=== PATIENT | female | born 1970 | race African-American/Black ===

== ENCOUNTER 2017-05-07 10:58 | Emergency (ER) | payer BC ==
[2017-05-07 11:06] VITALS: BP 119/75; PULSE 84; RESP 18; TEMP 97.7; O2SAT 96
[2017-05-07] MEDS ORDERED: BUSP5TAB PO (11:28)
[2017-05-07] MEDS ORDERED: ALPR1TAB3 PO (11:28)
[2017-05-07] MEDS ORDERED: DIVA250T3 PO (11:28)
[2017-05-07] MEDS ORDERED: CABE0.5T PO (11:28)
[2017-05-07] MEDS ORDERED: PARO10TA2 PO (11:28)
[2017-05-07] MEDS ORDERED: BIOT1CAP3 PO (11:28)
[2017-05-07] MEDS ORDERED: AMLO5TAB2 PO (11:28)
[2017-05-07 11:30] LABS: AUTOMATED NEUTROPHIL # 1.8 TH/MM3 (1.8-7.7); BASOPHIL # 0.1 TH/MM3 (0-0.2); BASOPHIL % 1.9 % (0.0-2.0); EOSINOPHIL % 0.6 % (0.0-4.0); HEMATOCRIT 37.3 % (35.0-46.0); HEMOGLOBIN 12.5 GM/DL (11.6-15.3); LYMPH % 44.7 % (9.0-44.0); LYMPHOCYTE # 1.7 TH/MM3 (1.0-4.8); MEAN CELL VOLUME 90.8 FL (80.0-100.0); MEAN CORPUSCULAR HEMOGLOBIN 30.5 PG (27.0-34.0); MEAN CORPUSCULAR HGB CONC 33.6 % (32.0-36.0); MEAN PLATELET VOLUME 8.1 FL (7.0-11.0); MONO % 5.5 % (0.0-8.0); MONOCYTE # 0.2 TH/MM3 (0-0.9); NEUT % 47.3 % (16.0-70.0); PLATELET COUNT 215 TH/MM3 (150-450); RED BLOOD COUNT 4.11 MIL/MM3 (4.00-5.30); RED CELL DISTRIBUTION WIDTH 14.3 % (11.6-17.2); WHITE BLOOD COUNT 3.8 TH/MM3 (4.0-11.0)
[2017-05-07 11:47] LABS: CHLORIDE 104 MEQ/L (98-107); SODIUM (NA) 139 MEQ/L (136-145)
--- NOTE | 2017-05-07 11:48 | RADRPT ---
EXAM DATE/TIME: 05/07/2017 11:33 [facility] COMPARISON: No previous studies available for comparison. INDICATIONS : Chest pain. MEDICAL HISTORY : Hypertension. Parathyroid. SURGICAL HISTORY : None. ENCOUNTER: Initial ACUITY: 2 months PAIN SCORE: 7/10 LOCATION: Bilateral chest FINDINGS: PA and lateral views of the chest demonstrate the lungs to be symmetrically aerated without evidence of mass, infiltrate or effusion. The cardiomediastinal contours are unremarkable. Osseous structure s are intact. CONCLUSION: Normal examination for a patient of this age. [place] Marquez MD on May 07, 2017 at 11:46 Board Certified Radiologist. This report was verified electronically.
[2017-05-07 11:50] LABS: CALCIUM 8.5 MG/DL (8.5-10.1)
[2017-05-07 11:51] LABS: ALBUMIN 3.6 GM/DL (3.4-5.0); BICARBONATE 29.6 MEQ/L (21.0-32.0); BLOOD UREA NITROGEN 11 MG/DL (7-18); GLUCOSE,RANDOM 90 MG/DL (74-106)
[2017-05-07 11:52] VITALS: BP 101/65; PULSE 81; RESP 18; O2SAT 98
[2017-05-07 11:53] LABS: ALT (GPT) 11 U/L (10-53)
[2017-05-07 11:54] LABS: AST (GOT) 10 U/L (15-37); CREATININE 0.96 MG/DL (0.50-1.00); GLOMERULAR FILTRATION RATE 76 ML/MIN (>89)
[2017-05-07 11:55] LABS: TOTAL BILIRUBIN ADULT 0.2 MG/DL (0.2-1.0); TOTAL PROTEIN 7.5 GM/DL (6.4-8.2)
[2017-05-07 11:57] LABS: ALKALINE PHOSPHATASE 29 U/L (45-117)
[2017-05-07 11:59] LABS: TROPONIN I LESS THAN 0.02 NG/ML (0.02-0.05)
[2017-05-07] MEDS ORDERED: IOHEXOL 350 MG/ML 10 ML VIAL (for RAD DIAG) IVCONTRAST ONE (12:58)
--- NOTE | 2017-05-07 13:19 | RADRPT ---
EXAM DATE/TIME: 05/07/2017 12:49 [facility] COMPARISON: No previous studies available for comparison. INDICATIONS : Anterior chest pain radiating to back. IV CONTRAST: 65 cc Omnipaque 350 (iohexol) IV RADIATION DOSE: 8.83 CTDIvol (mGy) MEDICAL HISTORY : Hypertension. SURGICAL HISTORY : Parathyroid surgery. ENCOUNTER: Initial ACUITY: 3 months PAIN SCALE: 5/10 LOCATION: Bilateral chest TECHNIQUE: Volumetric scanning of the chest was performed using a pulmonary embolism protocol MIP images were re constructed. Using automated exposure control and adjustment of the mA and/or kV according to patien t size, radiation dose was kept as low as reasonably achievable to obtain optimal diagnostic quality images. DICOM format image data is available electronically for review and comparison. Follow-up recommendations for detected pulmonary nodules are based at a minimum on nodule size and pa tient risk factors according to Fleischner Society Guidelines. FINDINGS: PULMONARY ARTERIES: No filling defects are seen in the pulmonary arteries through the segmental level. LUNGS: There is no consolidation or pneumothorax . No concerning pulmonary nodule is visualized. PLEURAE: There is no pleural thickening or pleural effusion. MEDIASTINUM: There is good visualization of the great vessels of the middle mediastinum. No evidence of mediastin al or hilar adenopathy/mass. MUSCULOSKELETAL: Within normal limits for patient age. MISCELLANEOUS: The visualized upper abdominal organs demonstrate no acute abnormality. Patient is status post cholec ystectomy. CONCLUSION: Negative exam. No acute infiltrate or pulmonary embolus to explain current clinical symptoms. Mick Tidwell MD on May 07, 2017 at 13:03 Board Certified Radiologist. This report was verified electronically.
--- NOTE | 2017-05-07 13:48 | PD ---
HPI Chief Complaint: Chest Pain Time Seen by Provider: 11:05 Travel History International Travel<30 days: No Contact w/Intl Traveler<30days: No Traveled to known affect area: No History of Present Illness HPI This is a 47-year-old female presented here complaining of chest pain. She has been this been going on since February. Patient states that she had endoscopy done in February and since then she has been having nauseous pain. Patient states that pain is 3 out of 10, comes and goes, substernal, no radiation, no palpitation or sweating is related to exercise or activity. Pain is worse when she lays down. 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 Patient denies any fever chills or night sweats she denies any cough or runny nose or headache. PFSH Past Medical History Hypertension: Yes Medical other: Yes (MEN TYPE 2) ?: Not Past Surgical History Other Surgery: Yes (PARATHYROID) Social History Alcohol Use: No Tobacco Use: No Substance Use: No Allergies-Medications (Allergen,Severity, Reaction): Coded Allergies: No Known Allergies (Unverified , 05/07/17) Reported Meds & Prescriptions Reported Meds & Active Scripts Active Reported Biotin 10,000 Mcg Capsule 1 Cap PO DAILY Amlodipine (Amlodipine Besylate) 5 Mg Tab 5 Mg PO DAILY Alprazolam 1 Mg Tab 2 Mg PO HS PRN Cabergoline 0.5 Mg Tab 0.5 Mg PO WEEKLY Divalproex ER (Divalproex Sodium) 250 Mg Ricki 250 Mg PO HS Buspirone (Buspirone HCl) 5 Mg Tab 5 Mg PO TID Paroxetine (Paroxetine HCl) 10 Mg Tab 10 Mg PO DAILY Review of Systems Except as stated in HPI: all other systems reviewed are Neg Physical Exam Narrative GENERAL: Alert oriented 3 no acute distress. SKIN: Focused skin assessment warm/dry. HEAD: Atraumatic. Normocephalic. EYES: Pupils equal and round. No scleral icterus. No injection or drainage. ENT: No nasal bleeding or discharge. Mucous membranes pink and moist. NECK: Trachea midline. No JVD. CARDIOVASCULAR: Regular rate and rhythm. No murmur appreciated. RESPIRATORY: No accessory muscle use. Clear to auscultation. Breath sounds equal bilaterally. GASTROINTESTINAL: Abdomen soft, non-tender, nondistended. Hepatic and splenic margins not palpable. MUSCULOSKELETAL: No obvious deformities. No clubbing. No cyanosis. No edema. NEUROLOGICAL: Awake and alert. No obvious cranial nerve deficits. Motor grossly within normal limits. Normal speech. PSYCHIATRIC: Appropriate mood and affect; insight and judgment normal. Data Data Last Documented VS Vital Signs Date Time Temp Pulse Resp B/P (MAP) Pulse Ox O2 Delivery O2 Flow Rate FiO2 05/07/17 11:52 81 18 101/65 (77) 98 05/07/17 11:06 97.7 Orders Orders Complete Blood Count With Diff (05/07/17 11:17) Comprehensive Metabolic Panel (05/07/17 11:17) D-Dimer (05/07/17 11:17) Lipase (05/07/17 11:17) Troponin I (05/07/17 11:17) Electrocardiogram (05/07/17 ) Chest, Pa & Lat (05/07/17 ) Ct Pulmonary Angiogram (05/07/17 ) Lipase (05/07/17 12:19) Iohexol 350 Inj (Omnipaque 350 Inj) (05/07/17 12:58) Ed Discharge Order (05/07/17 13:48) Labs Laboratory Tests Test 05/07/17 11:19 White Blood Count 3.8 TH/MM3 Red Blood Count 4.11 MIL/MM3 Hemoglobin 12.5 GM/DL Hematocrit 37.3 % Mean Corpuscular Volume 90.8 FL Mean Corpuscular Hemoglobin 30.5 PG Mean Corpuscular Hemoglobin Concent 33.6 % Red Cell Distribution Width 14.3 % Platelet Count 215 TH/MM3 Mean Platelet Volume 8.1 FL Neutrophils (%) (Auto) 47.3 % Lymphocytes (%) (Auto) 44.7 % Monocytes (%) (Auto) 5.5 % Eosinophils (%) (Auto) 0.6 % Basophils (%) (Auto) 1.9 % Neutrophils # (Auto) 1.8 TH/MM3 Lymphocytes # (Auto) 1.7 TH/MM3 Monocytes # (Auto) 0.2 TH/MM3 Eosinophils # (Auto) 0.0 TH/MM3 Basophils # (Auto) 0.1 TH/MM3 CBC Comment DIFF FINAL Differential Comment D-Dimer Quantitative (PE/DVT) 1.20 MG/L FEU Blood Urea Nitrogen 11 MG/DL Creatinine 0.96 MG/DL Random Glucose 90 MG/DL Total Protein 7.5 GM/DL Albumin 3.6 GM/DL Calcium Level 8.5 MG/DL Alkaline Phosphatase 29 U/L Aspartate Amino Transf (AST/SGOT) 10 U/L Alanine Aminotransferase (ALT/SGPT) 11 U/L Total Bilirubin 0.2 MG/DL Sodium Level 139 MEQ/L Potassium Level 4.0 MEQ/L Chloride Level 104 MEQ/L Carbon Dioxide Level 29.6 MEQ/L Anion Gap 5 MEQ/L Estimat Glomerular Filtration Rate 76 ML/MIN Troponin I LESS THAN 0.02 NG/ML Lipase 113 U/L MDM Medical Decision Making Medical Screen Exam Complete: Yes Emergency Medical Condition: Yes Differential Diagnosis GERD, pancreatitis, pneumothorax, acute coronary syndrome, bronchitis. Narrative Course This is a 47-year-old female presented here complaining of flashes pain that is substernal. She states that pain is started for since February and it occurred after she had the endoscopy. Patient was diagnosed with MEN type I syndrome but she did not have any evidence of pancreatic cancer. Labs are within normal limits except for leukopenia with lymphocytosis and elevated d-dimer. CTA lung is clear and part of the pancreas and the CT does not show any masses or cysts. Lipase is negative. I am still concerned about leukopenia with lymphocytosis , I spoke with Dr. Guerra investment advisor and his recommendations were to repeat CBC again in 4 weeks as an outpatient and see if any further investigations are warranted from there. I discussed that with the patient and she agrees and I gave her a copy of her CBC follow-up with her primary care physician for now I do not see any reason for the chest pain except for what could be GERD and she does have a prescription for Protonix that she only tried a week ago so I will go ahead and recommend that she continue taking that and she follow-up with her primary care physician. Diagnosis Primary Impression: GERD (gastroesophageal reflux disease) Qualified Codes: K21.9 - Gastro-esophageal reflux disease without esophagitis Additional Impression: Leukopenia Qualified Codes: D72.819 - Decreased white blood cell count, unspecified Additional Instructions: Follow-up with primary care physician for repeat CBC return to ER if symptoms change or do not improve. Disposition: 01 DISCHARGE HOME Condition: Stable Konstantin Olivia MD May 07, 2017 13:48
[2017-05-07 14:20] VITALS: BP 104/73
--- NOTE | 2017-05-07 14:42 | EKG ---
Date Performed: 05/07/2017 Time Performed: 11:05:20 PTAGE: 47 years EKG: Sinus rhythm SEPTAL MYOCARDIAL INFARCTION NONSPECIFIC T WAVE CHANGES ABNORMAL ECG NO PREVIOUS TRACING DOCTOR: Philip King Interpretating Date/Time 05/07/2017 14:40:09
== END 2017-05-07 14:23 | disposition home or self-care (01) ==
LOC: PHED 10:58
DX: K21.9 Gastro-esophageal reflux disease without esophagitis (principal); D72.819 Decreased white blood cell count, unspecified; D72.820 Lymphocytosis (symptomatic); R79.1 Abnormal coagulation profile; R94.31 Abnormal electrocardiogram [ECG] [EKG]; I10 Essential (primary) hypertension; E31.21 Multiple endocrine neoplasia [MEN] type I
CPT/HCPCS: 71046; 71275; 80053; 83690; 84484; 85025; 85379; 93005; 99285; Q9967

== ENCOUNTER 2017-05-30 17:37 | Emergency (ER) | payer BC ==
[~2017-05-30] VITALS: Ht 162.6 cm; Wt 61.3 kg
[~2017-05-30 17:37] MED LIST: ALPR1TAB3 PO; AMLO5TAB2 PO; BIOT1CAP3 PO; BUSP5TAB PO; CABE0.5T PO; DIVA250T3 PO; PARO10TA2 PO
[2017-05-30 17:40] VITALS: BP 147/92; PULSE 82; RESP 16; TEMP 98.8
--- NOTE | 2017-05-30 18:08 | PD ---
HPI Chief Complaint: Cardiac Complaint Time Seen by Provider: 18:08 Travel History International Travel<30 days: No Contact w/Intl Traveler<30days: No Traveled to known affect area: No History of Present Illness HPI 47-year-old female came to the emergency room with history of right sided tingling. Patient points to her scalp, face, upper extremities on the right side with these tingling sensation. She is also had pain on the same distribution but that has been going on for more than a year. Patient sees a neurologist for that. So far she has had MRI and CAT scan in no significant diagnosis has been made. Patient says the tingling has been going on for past 3 -4 days and thus the reason for coming to the emergency room today. Vital signs are stable. No weakness of upper or lower extremities. [facility] Past Medical History Narrative Medical List of her past medical, surgical, social and family history is reviewed from the nursing note. Cardiovascular Problems: Yes (htn in the past not on meds at this time) Hypertension: Yes ?: Not Past Surgical History Hysterectomy: Yes Other Surgery: Yes (PARATHYROID) Social History Alcohol Use: No Tobacco Use: No Substance Use: No Allergies-Medications (Allergen,Severity, Reaction): Coded Allergies: No Known Allergies (Unverified , 05/30/17) Comments No known drug allergies. Reported Meds & Prescriptions Reported Meds & Active Scripts Active Reported Biotin 10,000 Mcg Capsule 1 Cap PO DAILY Alprazolam 1 Mg Tab 2 Mg PO HS PRN Divalproex ER (Divalproex Sodium) 250 Mg Ricki 250 Mg PO HS Narrative Medication List of her home medications reviewed from the nursing note. Review of Systems Except as stated in HPI: all other systems reviewed are Neg Neurologic: Positive: Paresthesia Physical Exam Narrative GENERAL: Awake, alert, mild distress SKIN: Focused skin assessment warm/dry. HEAD: Atraumatic. Normocephalic. EYES: Pupils equal and round. No scleral icterus. No injection or drainage. ENT: No nasal bleeding or discharge. Mucous membranes pink and moist. NECK: Trachea midline. No JVD. CARDIOVASCULAR: Regular rate and rhythm. No murmur appreciated. RESPIRATORY: No accessory muscle use. Clear to auscultation. Breath sounds equal bilaterally. GASTROINTESTINAL: Abdomen soft, non-tender, nondistended. Hepatic and splenic margins not palpable. MUSCULOSKELETAL: No obvious deformities. No clubbing. No cyanosis. No edema. NEUROLOGICAL: Awake and alert. No obvious cranial nerve deficits. Motor grossly within normal limits. Normal speech. PSYCHIATRIC: Appropriate mood and affect; insight and judgment normal. Data Data Last Documented VS Vital Signs Date Time Temp Pulse Resp B/P (MAP) Pulse Ox O2 Delivery O2 Flow Rate FiO2 05/30/17 19:17 82 20 114/79 (91) 98 05/30/17 17:40 98.8 Orders Orders Complete Blood Count With Diff (05/30/17 18:22) Basic Metabolic Panel (Bmp) (05/30/17 18:22) Urinalysis - C+S If Indicated (05/30/17 18:22) Ct Brain W/O Iv Contrast(Rout) (05/30/17 18:22) Ecg Monitoring (05/30/17 18:22) Iv Access Insert/Monitor (05/30/17 18:22) Oximetry (05/30/17 18:22) Sodium Chloride 0.9% Flush (Ns Flush) (05/30/17 18:30) Ed Urine Pregnancytest Poc (05/30/17 18:22) Urine Culture (05/30/17 18:40) Ed Discharge Order (05/30/17 19:04) Labs Laboratory Tests Test 05/30/17 18:30 05/30/17 18:40 White Blood Count 4.5 TH/MM3 Red Blood Count 3.62 MIL/MM3 Hemoglobin 11.4 GM/DL Hematocrit 32.9 % Mean Corpuscular Volume 90.8 FL Mean Corpuscular Hemoglobin 31.4 PG Mean Corpuscular Hemoglobin Concent 34.5 % Red Cell Distribution Width 14.6 % Platelet Count 243 TH/MM3 Mean Platelet Volume 7.4 FL Neutrophils (%) (Auto) 49.1 % Lymphocytes (%) (Auto) 43.4 % Monocytes (%) (Auto) 5.2 % Eosinophils (%) (Auto) 0.9 % Basophils (%) (Auto) 1.4 % Neutrophils # (Auto) 2.2 TH/MM3 Lymphocytes # (Auto) 2.0 TH/MM3 Monocytes # (Auto) 0.2 TH/MM3 Eosinophils # (Auto) 0.0 TH/MM3 Basophils # (Auto) 0.1 TH/MM3 CBC Comment DIFF FINAL Differential Comment Blood Urea Nitrogen 13 MG/DL Creatinine 0.90 MG/DL Random Glucose 81 MG/DL Calcium Level 8.6 MG/DL Sodium Level 139 MEQ/L Potassium Level 3.9 MEQ/L Chloride Level 106 MEQ/L Carbon Dioxide Level 26.1 MEQ/L Anion Gap 7 MEQ/L Estimat Glomerular Filtration Rate 82 ML/MIN Urine Color YELLOW Urine Turbidity CLEAR Urine pH 6.0 Urine Specific [place] 1.020 Urine Protein NEG mg/dL Urine Glucose (UA) NEG mg/dL Urine Ketones NEG mg/dL Urine Occult Blood NEG Urine Nitrite NEG Urine Bilirubin NEG Urine Urobilinogen 0.2 MG/DL Urine Leukocyte Esterase NEG Urine WBC 0-2 /hpf Urine Squamous Epithelial Cells > 8 /hpf Urine Bacteria MOD /hpf Microscopic Urinalysis Comment CULTURE INDICATED MDM Medical Decision Making Medical Screen Exam Complete: Yes Emergency Medical Condition: Yes Medical Record Reviewed: Yes Differential Diagnosis Paresthesia, CVA Narrative Course 6:56 PM awaiting for CAT scan report. Most of the blood test results are back and within normal limits. If the test results are within normal limits patient will be discharged home to follow-up with a neurologist. 7:[address] is negative. Patient will be discharged home Procedures EKG Prior to Arrival: No Diagnosis Primary Impression: Paresthesia Additional Impression: Chronic pain Qualified Codes: G89.29 - Other chronic pain Additional Instructions: Please follow-up with your neurologist for any further tests that would be required by the neurologist. Disposition: 01 DISCHARGE HOME Condition: Stable Delfina Katz MD May 30, 2017 18:08
[2017-05-30] MEDS ORDERED: SODIUM CHLORIDE 0.9% FLUSH 10 ML FLUSH IVF PRN (18:30)
[2017-05-30 18:37] VITALS: O2SAT 97
[2017-05-30 18:42] LABS: AUTOMATED NEUTROPHIL # 2.2 TH/MM3 (1.8-7.7); BASOPHIL # 0.1 TH/MM3 (0-0.2); BASOPHIL % 1.4 % (0.0-2.0); EOSINOPHIL % 0.9 % (0.0-4.0); HEMATOCRIT 32.9 % (35.0-46.0); HEMOGLOBIN 11.4 GM/DL (11.6-15.3); LYMPH % 43.4 % (9.0-44.0); MEAN CELL VOLUME 90.8 FL (80.0-100.0); MEAN CORPUSCULAR HEMOGLOBIN 31.4 PG (27.0-34.0); MEAN CORPUSCULAR HGB CONC 34.5 % (32.0-36.0); MEAN PLATELET VOLUME 7.4 FL (7.0-11.0); MONO % 5.2 % (0.0-8.0); MONOCYTE # 0.2 TH/MM3 (0-0.9); NEUT % 49.1 % (16.0-70.0); PLATELET COUNT 243 TH/MM3 (150-450); RED BLOOD COUNT 3.62 MIL/MM3 (4.00-5.30); RED CELL DISTRIBUTION WIDTH 14.6 % (11.6-17.2); WHITE BLOOD COUNT 4.5 TH/MM3 (4.0-11.0)
[2017-05-30 18:52] LABS: BILIRUBIN, URINE NEG (NEG); BLOOD, URINE NEG (NEG); GLUCOSE,URINE NEG (NEG); KETONE, URINE NEG (NEG); NITRITE,URINE NEG (NEG); URINE COLOR YELLOW (YELLW/STRAW); URINE LEUKOCYTE ESTERASE NEG (NEG)
[2017-05-30 18:55] LABS: CALCIUM 8.6 MG/DL (8.5-10.1)
[2017-05-30 18:56] LABS: BACTERIA, URINE MOD /hpf; SQUAMOUS EPITHELIAL CELL URINE > 8 /hpf (0-5); WBC, URINE 0-2 /hpf (0-5)
[2017-05-30 18:56] LABS: BICARBONATE 26.1 MEQ/L (21.0-32.0)
--- NOTE | 2017-05-30 18:57 | RADRPT ---
EXAM DATE/TIME: 05/30/2017 18:41 [facility] COMPARISON: No previous studies available for comparison. INDICATIONS : Tingling and numbness right facial, neck and arm. Evaluate for cerebrovascular accident. RADIATION DOSE: 58.12 CTDIvol (mGy) MEDICAL HISTORY : Hypertension. SURGICAL HISTORY : Hysterectomy. Parathyroid surgery. ENCOUNTER: Initial ACUITY: 4 - 6 days PAIN SCALE: 8/10 LOCATION: cranial TECHNIQUE: Multiple contiguous axial images were obtained of the head. Using automated exposure control and adj ustment of the mA and/or kV according to patient size, radiation dose was kept as low as reasonably a chievable to obtain optimal diagnostic quality images. DICOM format image data is available electro nically for review and comparison. FINDINGS: CEREBRUM: The ventricles are normal for age. No evidence of midline shift, mass lesion, hemorrhage or acute in farction. No extra-axial fluid collections are seen. POSTERIOR FOSSA: The cerebellum and brainstem are intact. The 4th ventricle is midline. The cerebellopontine angle i s unremarkable. EXTRACRANIAL: The visualized portion of the orbits is intact. SKULL: The calvaria is intact. No evidence of skull fracture. CONCLUSION: Negative noncontrast head CT Ion Butler MD on May 30, 2017 at 18:54 Board Certified Radiologist. This report was verified electronically.
[2017-05-30 18:59] LABS: CREATININE 0.9 MG/DL (0.50-1.00)
[2017-05-30 19:17] VITALS: BP 114/79
== END 2017-05-30 19:21 | disposition home or self-care (01) ==
LOC: PHEFT 17:37
DX: R20.2 Paresthesia of skin (principal); G89.29 Other chronic pain; I10 Essential (primary) hypertension
CPT/HCPCS: 70450; 80048; 81001; 85025; 87086

== ENCOUNTER 2017-06-14 05:48 | Day surgery (SDC) | payer BC ==
[~2017-06-14] VITALS: Ht 162.6 cm; Wt 65.0 kg
[~2017-06-14 05:48] MED LIST changes: -AMLO5TAB2 PO; -BUSP5TAB PO; -CABE0.5T PO; -PARO10TA2 PO
[2017-06-14] MEDS ORDERED: SODIUM CHLORID 0.9% 500 ML IV PRN (07:00)
[2017-06-14] MEDS ORDERED: POVIDONE IODINE 5% (ANTISEPSIS KIT) 4 APPLICATIONS EACH NARE PRN (07:00)
[2017-06-14] MEDS ORDERED: METOPROLOL TARTRATE 25 MG TAB PO PRN (07:00)
[2017-06-14] MEDS ORDERED: CHLORHEXIDINE GLUCONATE 2 % 1 PACK (2 CLOTHS) TOPICAL PRN (07:00)
[2017-06-14] MEDS ORDERED: LACTATED RINGER'S 1000 ML IV PRN (07:00)
[2017-06-14] MEDS ORDERED: DEPA250T2 PO (07:34)
[2017-06-14 07:47] VITALS: BP 113/83; PULSE 80; RESP 18; TEMP 97.9; O2SAT 98
--- NOTE | 2017-06-14 08:21 | PD.RAD ---
Post Procedure Progress Note Pre Procedure Diagnosis: (1) Multiple sclerosis Post Procedure Diagnosis: (1) Multiple sclerosis Procedure Date: Jun 14, 2017 Supervising Radiologist: Saad Olmedo Proceduralist/Assist: RT Sundar(R) Anesthesia: Local Plan of Activity Patient to Unit: ROPU Patient Condition: Good See PACS Report for procedural detail/treatment Spinal Procedure Lumbar Puncture L3-L4 Fluid Removal (CCs): 10 Fluid Description: Clear Saad Olmedo MD Jun 14, 2017 08:21
[2017-06-14 08:35] VITALS: BP 126/88; PULSE 76; RESP 17; TEMP 97.8; O2SAT 98
[2017-06-14 08:58] LABS: TOTAL PROTEIN,CSF 66.5 MG/DL (15.0-45.0)
[2017-06-14 09:18] LABS: CSF LYMPHOCYTES 0 %; CSF NEUTROPHILS 0 %; SUPERNATE COLOR TUBE #1 CLEAR (CLEAR); VOLUME TUBE # 1 2.5 ML
[2017-06-14 09:19] LABS: CSF NEUTROPHILS 0 %; RBC TUBE #1 0 /MM3; WBC TUBE #1 0 /MM3 (0-10)
[2017-06-14 09:20] LABS: CSF LYMPHOCYTES 0 %; RBC TUBE #4 0 /MM3; WBC TUBE #4 0 /MM3 (0-10)
--- NOTE | 2017-06-14 10:24 | RADRPT ---
EXAM DATE/TIME: 06/14/2017 08:21 [facility] COMPARISON: No previous studies available for comparison. INDICATIONS : Patient presents with presistant headaches in need of lumbar puncture to rule out multiple sclerosis. MEDICAL HISTORY : HTN Kidney problems Pituitary tumor Parathyroid tumor DJD cervical spine SURGICAL HISTORY : Tonsillectomy Right knee scope Gallbladder removed Right shoulder sx Parathyroid gland removed Hysterectomy ENCOUNTER: Initial ACUITY: > 1 year PAIN SCORE: 2/10 LOCATION: Headache LUMBAR PUNCTURE TIME: 08:15 hours FLUORO TIME: 0.7 minutes IMAGE SERIES: 0 ACCESS LEVEL: L2-3 FLUID: 10 cc of clear CSF was collected and sent to the laboratory for analysis. PROCEDURE : 1. Fluoroscopic guided lumbar puncture. The risks, benefits and alternatives to the procedure were explained and verbal and written consent w as obtained. The site was prepped in sterile fashion. Full sterile technique was used, including ca p, mask, sterile gloves and gown and a large sterile sheet. Hand hygiene and 2% chlorhexidine and/or betadine/alcohol prep was utilized per protocol for cutaneous antisepsis. The skin and subcutaneous tissues were infiltrated with local anesthetic solution. With fluoroscopic guidance the lumbar thecal sac was punctured at the level above. The fluid describ ed above was removed without difficulty. The patient tolerated the procedure well and there were no complications. CONCLUSION: Uncomplicated fluoroscopically guided lumbar puncture. Saad Olmedo MD on June 14, 2017 at 10:21 Board Certified Radiologist. This report was verified electronically.
[2017-06-17 08:33] LABS: CSF CRYPTOCOCCUS AG CONF ND (NOT DETECTD)
[2017-06-18 19:53] LABS: VDRL CSF NON-REACTIVE (NON-REACTVE)
[2017-06-19 03:49] LABS: CSF CRYPTOCOCCUS ANTIGEN NOT DETECTED (NEGATIVE)
== END 2017-06-14 10:30 | disposition home or self-care (01) ==
LOC: HROP 05:48 → HRIP 05:48 → HROP 10:30
PROVIDERS: ATTEND Psychiatry & Neurology Neurology
DX: R51 Headache (principal); I10 Essential (primary) hypertension; G35 Multiple sclerosis; Z79.899 Other long term (current) drug therapy
CPT/HCPCS: 62270; 77003; 82040; 82042; 82784; 82945; 83873; 83916; 84157; 86403; 86592; 87015; 87070; 87116; 87205; 87206; 88108; 89051